=== PATIENT | female | born 1960 | race Caucasian/White ===

== ENCOUNTER 2017-12-21 10:13 | Emergency (ER) | payer MEDICAID ==
[~2017-12-21] VITALS: Ht 167.6 cm; Wt 55.0 kg
[2017-12-21] MEDS ORDERED: ketorolac trometh. 30mg/ml inj. IM ONE (11:20)
[2017-12-21 11:21] LABS: CLARITY,URINE CLOUDY (Clear); COLOR,URINE YELLOW (Yellow); GLUCOSE, URINE NEGATIVE (Neg); KETONES,URINE NEGATIVE (Neg); LEUKOCYTE ESTERASE ,URINE NEGATIVE (Neg); NITRITES, URINE NEGATIVE (Neg); OCCULT BLOOD,URINE TRACE-INTACT (Neg); PROTEIN,URINE NEGATIVE (Neg); UROBILINOGEN,URINE 0.2 E.U/dL (0.2-1.0)
[2017-12-21 11:34] LABS: UA COLLECTION TYPE CLN CATCH MIDSTREAM
[2017-12-21 11:36] LABS: RBC,URINE 0-2 /HPF (0-2); SQUAMOUS EPITHELIAL CELL,UR MANY /LPF (FEW); WBC,URINE 0-4 /HPF (0-4)
[2017-12-21 11:37] LABS: AMORPHOUS PHOSPHATES 2+
[2017-12-21 11:38] LABS: BACTERIA,URINE 1+ /HPF (Neg)
[2017-12-21] MEDS ORDERED: IBUP-1985 PO (11:45)
[2017-12-21] MEDS ORDERED: CYCL-1 PO (11:45)
[2017-12-21] MEDS ORDERED: DICL100G15 TOP (11:45)
[2017-12-21] MEDS ORDERED: LIDO700A32 TOP (11:45)
[2017-12-21 11:53] VITALS: BP 150/80
== END 2017-12-21 11:55 | disposition home or self-care (01) ==
LOC: ER 10:13
DX: M54.5 Low back pain (principal); M53.3 Sacrococcygeal disorders, not elsewhere classified; F17.200 Nicotine dependence, unspecified, uncomplicated; Z98.890 Other specified postprocedural states; Z79.899 Other long term (current) drug therapy
CPT/HCPCS: 81001; 96372; 99283; J1885